=== PATIENT | female | born 1985 | race Hispanic/Latino ===

== ENCOUNTER 2017-11-12 19:29 | Emergency (ER) | payer SELFPAY ==
[~2017-11-12] VITALS: Ht 152.4 cm; Wt 93.0 kg
[2017-11-12 20:17] LABS: URINE BILIRUBIN - DIPSTICK NEGATIVE (NEGATIVE); URINE BLOOD DIPSTICK NEGATIVE (NEGATIVE); URINE COLOR YELLOW; URINE GLUCOSE - DIPSTICK NEGATIVE (NEGATIVE); URINE KETONE NEGATIVE (NEGATIVE); URINE LEUK ESTERASE NEGATIVE (NEGATIVE); URINE NITRITE - DIPSTICK NEGATIVE (Negative); URINE PROTEIN - DIPSTICK NEGATIVE (NEG-TRACE); URINE SPECIFIC GRAVITY >=1.030; URINE UROBILINOGEN - DIPSTICK 0.2 E.U./dL (0.2)
[2017-11-12 20:19] LABS: URINE CLARITY CLEAR
[2017-11-12 20:29] LABS: HEMATOCRIT 38.7 % (37.0-47.0); HEMOGLOBIN 13.3 g/dl (12.0-16.0); IMMATURE GRANULOCYTES 0.5 % (0.0-5.0); MEAN CELL VOLUME 91.5 fL CALC (80.0-100.0); MEAN CORPUSCULAR HGB 31.4 pG CALC (26.0-32.0); MEAN CORPUSCULAR HGB CONC 34.4 g/L CALC (32.0-36.0); NEUT# 5.54 thou/uL (2.00-7.15); RED BLOOD COUNT 4.23 mill/uL (4.20-5.60); RED CELL DISTRI WIDTH 12.5 % (11.5-15.5)
[2017-11-12 20:40] LABS: ALBUMIN 3.9 g/dL (3.2-5.0); ALKALINE PHOSPHATASE 91 u/l (38-126); AMYLASE < 30 u/l (30-110); ANION GAP 12 (6-22 (CALC)); BILIRUBIN, TOTAL 0.2 mg/dL (0.0-1.4); BUN 13 mg/dL (7-17); BUN/CREATININE RATIO 22 (12-20 (CALC)); CARBON DIOXIDE 26 mmol/l (22-30); CHLORIDE 110 mmol/l (95-108); CREATININE 0.6 mg/dL (0.5-1.0); GFR > 60 ML/MIN (>=60 (CALC)); GFR FOR AFR.AMER. > 60 ML/MIN (>=60 (CALC)); LIPASE 125 u/l (23-300); SGOT/AST 18 u/l (14-36); SODIUM 144 mmol/l (137-146); TOTAL PROTEIN 7.2 g/dL (6.3-8.2)
[2017-11-12] MEDS ORDERED: ZOFRAN ODT4 MG PO (21:21)
[2017-11-12 22:01] VITALS: BP 128/72
== END 2017-11-12 21:59 | disposition home or self-care (01) | DRG 866 ==
LOC: ED 19:29
PROVIDERS: Emergency Medicine
DX: B34.9 Viral infection, unspecified (principal)

== ENCOUNTER 2017-12-03 18:40 | Emergency (ER) | payer SELFPAY ==
[~2017-12-03] VITALS: Ht 152.4 cm; Wt 93.0 kg
[~2017-12-03 18:40] MED LIST: ZOFRAN ODT4 MG PO
[2017-12-03 19:14] LABS: URINE BILIRUBIN - DIPSTICK NEGATIVE (NEGATIVE); URINE BLOOD DIPSTICK LARGE (NEGATIVE); URINE CLARITY SL CLOUDY; URINE COLOR YELLOW; URINE GLUCOSE - DIPSTICK NEGATIVE (NEGATIVE); URINE KETONE NEGATIVE (NEGATIVE); URINE LEUK ESTERASE NEGATIVE (NEGATIVE); URINE NITRITE - DIPSTICK NEGATIVE (Negative); URINE PH 6.5 (4.5-8.0); URINE PROTEIN - DIPSTICK NEGATIVE (NEG-TRACE); URINE SPECIFIC GRAVITY 1.025
[2017-12-03 19:20] LABS: URINE BACTERIA FEW hpf; URINE RBC 25-50 RBC/hpf (0-5); URINE SQUAMOUS EPITHELIAL CELL MODERATE EPI/hpf (0-FEW)
[2017-12-03 19:56] VITALS: BP 130/87
== END 2017-12-03 20:04 | disposition home or self-care (01) | DRG 761 ==
LOC: ED 18:40
DX: N92.6 Irregular menstruation, unspecified (principal)

== ENCOUNTER 2018-06-18 16:57 | Emergency (ER) | payer SELFPAY ==
[~2018-06-18] VITALS: Ht 152.4 cm; Wt 90.0 kg
[2018-06-18 17:36] LABS: URINE BILIRUBIN - DIPSTICK NEGATIVE (NEGATIVE); URINE BLOOD DIPSTICK NEGATIVE (NEGATIVE); URINE COLOR YELLOW; URINE GLUCOSE - DIPSTICK NEGATIVE (NEGATIVE); URINE KETONE NEGATIVE (NEGATIVE); URINE LEUK ESTERASE NEGATIVE (NEGATIVE); URINE NITRITE - DIPSTICK NEGATIVE (Negative); URINE PH 6.5 (4.5-8.0); URINE PROTEIN - DIPSTICK NEGATIVE (NEG-TRACE); URINE SPECIFIC GRAVITY 1.025
[2018-06-18 17:48] LABS: HEMATOCRIT 35.8 % (37.0-47.0); HEMOGLOBIN 12.5 g/dl (12.0-16.0); IMMATURE GRANULOCYTES 0.9 % (0.0-5.0); MEAN CELL VOLUME 90.9 fL CALC (80.0-100.0); MEAN CORPUSCULAR HGB 31.7 pG CALC (26.0-32.0); MEAN CORPUSCULAR HGB CONC 34.9 g/L CALC (32.0-36.0); NEUT# 5.83 thou/uL (2.00-7.15); RED BLOOD COUNT 3.94 mill/uL (4.20-5.60); RED CELL DISTRI WIDTH 12.7 % (11.5-15.5)
[2018-06-18 17:53] LABS: ALBUMIN 4.1 g/dL (3.2-5.0); ALKALINE PHOSPHATASE 74 u/l (38-126); ANION GAP 13 (6-22 (CALC)); BUN 10 mg/dL (7-17); BUN/CREATININE RATIO 20 (12-20 (CALC)); CARBON DIOXIDE 23 mmol/l (22-30); CHLORIDE 106 mmol/l (95-108); CREATININE 0.5 mg/dL (0.5-1.0); GFR > 60 ML/MIN (>=60 (CALC)); GFR FOR AFR.AMER. > 60 ML/MIN (>=60 (CALC)); LIPASE 110 u/l (23-300); POTASSIUM 3.6 mmol/l (3.5-5.1); SGOT/AST 19 u/l (14-36); SODIUM 139 mmol/l (137-146)
[2018-06-18 17:55] LABS: BILIRUBIN, TOTAL 0.3 mg/dL (0.0-1.4)
[2018-06-18] MEDS ORDERED: ONDANSETRON4 MG PO (18:40)
[2018-06-18] MEDS ORDERED: AUGMENTIN875TAB PO (18:40)
[2018-06-18] MEDS ORDERED: REGLAN10 MG PO (18:41)
[2018-06-18 18:57] VITALS: BP 127/80
== END 2018-06-18 19:06 | disposition home or self-care (01) | DRG 833 ==
LOC: ED 16:57
PROVIDERS: Family Medicine
DX: O99.619 Diseases of the digestive system complicating pregnancy, unspecified trimester (principal); K80.20 Calculus of gallbladder without cholecystitis without obstruction; O99.519 Diseases of the respiratory system complicating pregnancy, unspecified trimester; J02.0 Streptococcal pharyngitis; Z3A.00 Weeks of gestation of pregnancy not specified

== ENCOUNTER 2020-05-05 13:04 | Emergency (ER) | payer SELFPAY ==
[~2020-05-05] VITALS: Ht 152.4 cm; Wt 90.0 kg
[~2020-05-05 13:04] MED LIST changes: +AUGMENTIN875TAB PO; +ONDANSETRON4 MG PO; +REGLAN10 MG PO
[2020-05-05 14:17] LABS: HEMATOCRIT 37.4 % (37.0-47.0); HEMOGLOBIN 12.8 g/dl (12.0-16.0); IMMATURE GRANULOCYTES 0.7 % (0.0-5.0); MEAN CELL VOLUME 89.3 fL CALC (80.0-100.0); MEAN CORPUSCULAR HGB 30.5 pG CALC (26.0-32.0); MEAN CORPUSCULAR HGB CONC 34.2 g/dL CAL (32.0-36.0); NEUT# 4.42 thou/uL (2.00-7.15); RED BLOOD COUNT 4.19 mill/uL (4.20-5.60); RED CELL DISTRI WIDTH 12.1 % (11.5-15.5)
[2020-05-05 14:28] LABS: ALBUMIN 3.9 g/dL (3.2-5.0); ANION GAP 11 (6-22 (CALC)); BUN 11 mg/dL (7-17); BUN/CREATININE RATIO 17 (12-20 (CALC)); CARBON DIOXIDE 26 mmol/l (22-30); CHLORIDE 106 mmol/l (95-108); CREATININE 0.6 mg/dL (0.5-1.0); GFR > 60 ML/MIN (>=60 (CALC)); GFR FOR AFR.AMER. > 60 ML/MIN (>=60 (CALC)); LIPASE 133 u/l (23-300); POTASSIUM 3.7 mmol/l (3.5-5.1); SGOT/AST 22 u/l (14-36); SODIUM 140 mmol/l (137-146); TOTAL PROTEIN 7.3 g/dL (6.3-8.2)
[2020-05-05 14:29] LABS: ALKALINE PHOSPHATASE 112 u/l (38-126); BILIRUBIN, TOTAL 0.5 mg/dL (0.0-1.4)
[2020-05-05 15:18] LABS: URINE BILIRUBIN - DIPSTICK NEGATIVE (NEGATIVE); URINE BLOOD DIPSTICK SMALL (NEGATIVE); URINE COLOR YELLOW; URINE GLUCOSE - DIPSTICK 100 mg/dL (NEGATIVE); URINE KETONE TRACE mg/dL (NEGATIVE); URINE LEUK ESTERASE NEGATIVE (NEGATIVE); URINE PH 5.5 (4.5-8.0); URINE PROTEIN - DIPSTICK NEGATIVE (NEG-TRACE); URINE SPECIFIC GRAVITY >=1.030; URINE UROBILINOGEN - DIPSTICK 0.2 E.U./dL (0.2)
[2020-05-05 15:24] LABS: URINE NITRITE - DIPSTICK NEGATIVE (Negative)
[2020-05-05 15:28] LABS: URINE EPITHELIAL CELLS FEW EPI/hpf (0-FEW); URINE WBC 0-2 WBC/hpf (0-5)
[2020-05-05 16:20] VITALS: BP 110/65
== END 2020-05-05 16:21 | disposition home or self-care (01) | DRG 641 ==
LOC: ED 13:04
DX: R73.9 Hyperglycemia, unspecified (principal); R42 Dizziness and giddiness; Z20.822 Contact with and (suspected) exposure to COVID-19

== ENCOUNTER 2020-05-24 15:46 | Emergency (ER) | payer SELFPAY ==
[2020-05-24 16:28] LABS: URINE BILIRUBIN - DIPSTICK NEGATIVE (NEGATIVE); URINE BLOOD DIPSTICK NEGATIVE (NEGATIVE); URINE COLOR YELLOW; URINE GLUCOSE - DIPSTICK 250 mg/dL (NEGATIVE); URINE KETONE NEGATIVE (NEGATIVE); URINE LEUK ESTERASE NEGATIVE (NEGATIVE); URINE PH 5.5 (4.5-8.0); URINE PROTEIN - DIPSTICK NEGATIVE (NEG-TRACE); URINE SPECIFIC GRAVITY >=1.030; URINE UROBILINOGEN - DIPSTICK 0.2 E.U./dL (0.2)
[2020-05-24 16:31] LABS: URINE NITRITE - DIPSTICK NEGATIVE (Negative)
[2020-05-24] MEDS ORDERED: METFORMIN500 M2 PO (17:12)
[2020-05-24 17:20] LABS: HEMATOCRIT 39.4 % (37.0-47.0); HEMOGLOBIN 13.5 g/dl (12.0-16.0); IMMATURE GRANULOCYTES 1.1 % (0.0-5.0); MEAN CELL VOLUME 88.9 fL CALC (80.0-100.0); MEAN CORPUSCULAR HGB 30.5 pG CALC (26.0-32.0); MEAN CORPUSCULAR HGB CONC 34.3 g/dL CAL (32.0-36.0); NEUT# 6.1 thou/uL (2.00-7.15); RED BLOOD COUNT 4.43 mill/uL (4.20-5.60); RED CELL DISTRI WIDTH 12.6 % (11.5-15.5)
[2020-05-24 17:39] LABS: ALBUMIN 4.3 g/dL (3.2-5.0); ALKALINE PHOSPHATASE 105 u/l (38-126); ANION GAP 11 (6-22 (CALC)); BILIRUBIN, TOTAL 0.5 mg/dL (0.0-1.4); BUN 11 mg/dL (7-17); BUN/CREATININE RATIO 20 (12-20 (CALC)); CARBON DIOXIDE 26 mmol/l (22-30); CHLORIDE 103 mmol/l (95-108); CREATININE 0.6 mg/dL (0.5-1.0); GFR > 60 ML/MIN (>=60 (CALC)); GFR FOR AFR.AMER. > 60 ML/MIN (>=60 (CALC)); POTASSIUM 4.3 mmol/l (3.5-5.1); SGOT/AST 23 u/l (14-36); SODIUM 136 mmol/l (137-146); TOTAL PROTEIN 7.8 g/dL (6.3-8.2)
[2020-05-24] MEDS ORDERED: [UNRECOGNIZED DRUG - OTHER] VA (18:13)
[2020-05-24 18:33] VITALS: BP 130/78
== END 2020-05-24 18:33 | disposition home or self-care (01) | DRG 641 ==
LOC: ED 15:46
PROVIDERS: Emergency Medicine
DX: R73.9 Hyperglycemia, unspecified (principal); B37.3 Candidiasis of vulva and vagina

== ENCOUNTER 2021-02-02 15:56 | Emergency (ER) | payer SELFPAY ==
[~2021-02-02] VITALS: Ht 152.4 cm; Wt 72.0 kg
[~2021-02-02 15:56] MED LIST changes: +METFORMIN500 M2 PO; +[UNRECOGNIZED DRUG - OTHER] VA
[2021-02-02 17:28] LABS: HEMATOCRIT 38.2 % (37.0-47.0); HEMOGLOBIN 13.2 g/dl (12.0-16.0); IMMATURE GRANULOCYTES 0.4 % (0.0-5.0); MEAN CELL VOLUME 89.3 fL CALC (80.0-100.0); MEAN CORPUSCULAR HGB 30.8 pG CALC (26.0-32.0); MEAN CORPUSCULAR HGB CONC 34.6 g/dL CAL (32.0-36.0); NEUT# 4.71 thou/uL (2.00-7.15); RED BLOOD COUNT 4.28 mill/uL (4.20-5.60)
[2021-02-02 17:38] LABS: ALBUMIN 4.3 g/dL (3.2-5.0); ALKALINE PHOSPHATASE 135 u/l (38-126); ANION GAP 11 (6-22 (CALC)); BUN 10 mg/dL (7-17); BUN/CREATININE RATIO 14 (12-20 (CALC)); CARBON DIOXIDE 27 mmol/l (22-30); CHLORIDE 104 mmol/l (95-108); CREATININE 0.7 mg/dL (0.5-1.0); GFR > 60 ML/MIN (>=60 (CALC)); GFR FOR AFR.AMER. > 60 ML/MIN (>=60 (CALC)); POTASSIUM 4.8 mmol/l (3.5-5.1); SODIUM 137 mmol/l (137-146); TOTAL PROTEIN 8.4 g/dL (6.3-8.2)
[2021-02-02 17:39] LABS: BILIRUBIN, TOTAL 1.3 mg/dL (0.0-1.4); SGOT/AST 50 u/l (14-36)
[2021-02-02 17:49] LABS: MYOGLOBIN 14 ng/mL (0 - 62)
[2021-02-02 19:36] LABS: URINE BILIRUBIN - DIPSTICK NEGATIVE (NEGATIVE); URINE BLOOD DIPSTICK NEGATIVE (NEGATIVE); URINE COLOR YELLOW; URINE GLUCOSE - DIPSTICK >=1000 mg/dL (NEGATIVE); URINE KETONE NEGATIVE (NEGATIVE); URINE LEUK ESTERASE NEGATIVE (NEGATIVE); URINE PROTEIN - DIPSTICK NEGATIVE (NEG-TRACE); URINE SPECIFIC GRAVITY >=1.030; URINE UROBILINOGEN - DIPSTICK 0.2 E.U./dL (0.2)
[2021-02-02 19:41] LABS: URINE NITRITE - DIPSTICK NEGATIVE (Negative)
[2021-02-02 20:07] VITALS: BP 128/75
== END 2021-02-02 20:07 | disposition home or self-care (01) | DRG 639 ==
LOC: ED 15:56
PROVIDERS: Emergency Medicine
DX: E11.65 Type 2 diabetes mellitus with hyperglycemia (principal); T38.3X6A Underdosing of insulin and oral hypoglycemic [antidiabetic] drugs, initial encounter; Z91.128 Patient's intentional underdosing of medication regimen for other reason

== ENCOUNTER 2021-05-23 09:31 | Emergency (ER) | payer SELFPAY ==
[~2021-05-23] VITALS: Ht 152.4 cm; Wt 100.0 kg
[2021-05-23 09:43] VITALS: BP 134/79
[2021-05-23 10:03] LABS: URINE BILIRUBIN - DIPSTICK NEGATIVE (NEGATIVE); URINE BLOOD DIPSTICK MODERATE (NEGATIVE); URINE COLOR YELLOW; URINE GLUCOSE - DIPSTICK >=1000 mg/dL (NEGATIVE); URINE KETONE NEGATIVE (NEGATIVE); URINE LEUK ESTERASE NEGATIVE (NEGATIVE); URINE PROTEIN - DIPSTICK NEGATIVE (NEG-TRACE); URINE UROBILINOGEN - DIPSTICK 0.2 E.U./dL (0.2)
[2021-05-23 10:19] LABS: URINE NITRITE - DIPSTICK NEGATIVE (Negative)
[2021-05-23 10:21] LABS: URINE EPITHELIAL CELLS FEW EPI/hpf (0-FEW)
[2021-05-23 10:32] VITALS: BP 121/76
[2021-05-23] MEDS ORDERED: DOXY-CAPS100 MG PO (10:59)
[2021-05-23 11:00] VITALS: BP 120/71
[2021-05-23] MEDS ORDERED: DIFLUCAN150 MG PO (11:00)
[2021-05-23 11:30] VITALS: BP 121/71
[2021-05-23 11:38] VITALS: BP 121/71
== END 2021-05-23 11:38 | disposition home or self-care (01) | DRG 759 ==
LOC: ED 09:31
PROVIDERS: Family Medicine
DX: A64 Unspecified sexually transmitted disease (principal); E11.65 Type 2 diabetes mellitus with hyperglycemia; B37.3 Candidiasis of vulva and vagina

== ENCOUNTER 2021-11-17 09:16 | Emergency (ER) | payer SELFPAY ==
[~2021-11-17] VITALS: Ht 152.4 cm; Wt 59.0 kg
[~2021-11-17 09:16] MED LIST changes: +DIFLUCAN150 MG PO; +DOXY-CAPS100 MG PO
[2021-11-17 09:26] VITALS: BP 114/63
[2021-11-17] MEDS ORDERED: MUPIROCIN21 TOP (09:43)
[2021-11-17] MEDS ORDERED: CEPHALEXIN500 M1 PO (09:43)
[2021-11-17 10:16] VITALS: BP 114/63
== END 2021-11-17 10:17 | disposition home or self-care (01) | DRG 605 ==
LOC: ED 09:16
DX: S90.812A Abrasion, left foot, initial encounter (principal); L03.116 Cellulitis of left lower limb; E11.9 Type 2 diabetes mellitus without complications; X58.XXXA Exposure to other specified factors, initial encounter; Y92.007 Garden or yard of unspecified non-institutional (private) residence as the place of occurrence of the external cause

== ENCOUNTER 2021-12-30 13:27 | Emergency (ER) | payer SELFPAY ==
[~2021-12-30] VITALS: Ht 152.4 cm; Wt 85.0 kg
[~2021-12-30 13:27] MED LIST changes: +CEPHALEXIN500 M1 PO; +MUPIROCIN21 TOP
[2021-12-30 14:12] VITALS: BP 106/65
[2021-12-30 14:15] LABS: HEMATOCRIT 33.3 % (37.0-47.0); HEMOGLOBIN 11.6 g/dl (12.0-16.0); IMMATURE GRANULOCYTES 0.5 % (0.0-5.0); MEAN CELL VOLUME 90.7 fL CALC (80.0-100.0); MEAN CORPUSCULAR HGB 31.6 pG CALC (26.0-32.0); MEAN CORPUSCULAR HGB CONC 34.8 g/dL CAL (32.0-36.0); NEUT# 4.87 thou/uL (2.00-7.15); RED BLOOD COUNT 3.67 mill/uL (4.20-5.60); RED CELL DISTRI WIDTH 12.2 % (11.5-15.5)
[2021-12-30 14:20] LABS: URINE BILIRUBIN - DIPSTICK NEGATIVE (NEGATIVE); URINE BLOOD DIPSTICK MODERATE (NEGATIVE); URINE COLOR YELLOW; URINE GLUCOSE - DIPSTICK >=1000 mg/dL (NEGATIVE); URINE KETONE TRACE mg/dL (NEGATIVE); URINE LEUK ESTERASE NEGATIVE (NEGATIVE); URINE PROTEIN - DIPSTICK NEGATIVE (NEG-TRACE); URINE SPECIFIC GRAVITY >=1.030; URINE UROBILINOGEN - DIPSTICK 0.2 E.U./dL (0.2)
[2021-12-30 14:33] LABS: URINE NITRITE - DIPSTICK NEGATIVE (Negative)
[2021-12-30 14:34] LABS: ALBUMIN 3.6 g/dL (3.2-5.0); ALKALINE PHOSPHATASE 98 u/l (38-126); BUN 9 mg/dL (7-17); BUN/CREATININE RATIO 14 (12-20 (CALC)); CARBON DIOXIDE 26 mmol/l (22-30); CHLORIDE 105 mmol/l (95-108); CREATININE 0.6 mg/dL (0.5-1.0); GFR FOR AFR.AMER. > 60 ML/MIN (>=60 (CALC)); GFR OTHER RACES > 60 ML/MIN (>=60 (CALC)); SGOT/AST 30 u/l (14-36); SODIUM 139 mmol/l (137-146)
[2021-12-30 14:40] LABS: URINE WBC 0-2 WBC/hpf (0-5)
[2021-12-30 14:51] LABS: ANION GAP 12 (6-22 (CALC)); BILIRUBIN, TOTAL 0.2 mg/dL (0.0-1.4); POTASSIUM 3.5 mmol/l (3.5-5.1); TOTAL PROTEIN 6.7 g/dL (6.3-8.2)
[2021-12-30 18:37] VITALS: BP 106/65
== END 2021-12-30 18:42 | disposition home or self-care (01) | DRG 779 ==
LOC: ED 13:27
PROVIDERS: Family Medicine
DX: O03.4 Incomplete spontaneous abortion without complication (principal)

== ENCOUNTER 2021-12-31 11:25 | Emergency (ER) | payer SELFPAY ==
[~2021-12-31] VITALS: Ht 152.4 cm; Wt 70.0 kg
[2021-12-31 11:31] VITALS: BP 128/64
[2021-12-31 12:16] VITALS: BP 128/64
== END 2021-12-31 12:39 | disposition home or self-care (01) | DRG 779 ==
LOC: ED 11:25
DX: O03.4 Incomplete spontaneous abortion without complication (principal)

== ENCOUNTER 2022-01-01 07:49 | Emergency (ER) | payer SELFPAY ==
[~2022-01-01] VITALS: Ht 152.4 cm; Wt 81.8 kg
[2022-01-01 07:57] VITALS: BP 135/95
[2022-01-01 08:02] VITALS: BP 135/89
[2022-01-01 08:16] LABS: HEMATOCRIT 34.2 % (37.0-47.0); HEMOGLOBIN 12.1 g/dl (12.0-16.0); IMMATURE GRANULOCYTES 0.8 % (0.0-5.0); MEAN CORPUSCULAR HGB 31.8 pG CALC (26.0-32.0); MEAN CORPUSCULAR HGB CONC 35.4 g/dL CAL (32.0-36.0); NEUT# 4.46 thou/uL (2.00-7.15); RED BLOOD COUNT 3.8 mill/uL (4.20-5.60); RED CELL DISTRI WIDTH 12.1 % (11.5-15.5)
[2022-01-01 08:45] LABS: ALBUMIN 3.9 g/dL (3.2-5.0); ALKALINE PHOSPHATASE 99 u/l (38-126); ANION GAP 10 (6-22 (CALC)); BILIRUBIN, TOTAL 0.2 mg/dL (0.0-1.4); BUN 8 mg/dL (7-17); BUN/CREATININE RATIO 17 (12-20 (CALC)); CARBON DIOXIDE 27 mmol/l (22-30); CHLORIDE 106 mmol/l (95-108); CREATININE 0.5 mg/dL (0.5-1.0); GFR FOR AFR.AMER. > 60 ML/MIN (>=60 (CALC)); GFR OTHER RACES > 60 ML/MIN (>=60 (CALC)); POTASSIUM 3.8 mmol/l (3.5-5.1); SGOT/AST 29 u/l (14-36); SODIUM 140 mmol/l (137-146); TOTAL PROTEIN 6.8 g/dL (6.3-8.2)
[2022-01-01 09:26] VITALS: BP 135/89
== END 2022-01-01 09:27 | disposition home or self-care (01) | DRG 779 ==
LOC: ED 07:49
PROVIDERS: Family Medicine
DX: O03.9 Complete or unspecified spontaneous abortion without complication (principal)

== ENCOUNTER 2022-04-14 07:24 | Emergency (ER) | payer SELFPAY ==
[~2022-04-14] VITALS: Ht 152.4 cm; Wt 56.8 kg
[2022-04-14] VITALS (8 sets, daily range): BP systolic 101–129; BP diastolic 60–83
[2022-04-14 09:54] LABS: URINE BILIRUBIN - DIPSTICK NEGATIVE (NEGATIVE); URINE BLOOD DIPSTICK NEGATIVE (NEGATIVE); URINE COLOR YELLOW; URINE GLUCOSE - DIPSTICK >=1000 mg/dL (NEGATIVE); URINE KETONE NEGATIVE (NEGATIVE); URINE LEUK ESTERASE NEGATIVE (NEGATIVE); URINE PROTEIN - DIPSTICK NEGATIVE (NEG-TRACE); URINE SPECIFIC GRAVITY 1.015; URINE UROBILINOGEN - DIPSTICK 0.2 E.U./dL (0.2)
[2022-04-14 10:00] LABS: URINE NITRITE - DIPSTICK NEGATIVE (Negative)
[2022-04-14] MEDS ORDERED: ACYCLOVIR400 MG PO (12:00)
== END 2022-04-14 12:48 | disposition home or self-care (01) | DRG 759 ==
LOC: ED 07:24
PROVIDERS: Emergency Medicine
DX: A60.04 Herpesviral vulvovaginitis (principal); E11.9 Type 2 diabetes mellitus without complications

== ENCOUNTER 2022-09-07 18:16 | Emergency (ER) | payer SELFPAY ==
[2022-09-07] VITALS (8 sets, daily range): BP systolic 119–147; BP diastolic 80–92
[~2022-09-07] VITALS: Ht 152.4 cm; Wt 81.6 kg
[~2022-09-07 18:16] MED LIST changes: +ACYCLOVIR400 MG PO
[2022-09-07 19:12] LABS: BASO% 0.6 % (0-3); EOS% 4.3 % (0-8); HEMATOCRIT 37.2 % (37.0-47.0); HEMOGLOBIN 12.3 g/dl (12.0-16.0); IMMATURE GRANULOCYTES 0.8 % (0.0-5.0); LYMPH% 20.8 % (15-41); MEAN CELL VOLUME 87.3 fL CALC (80.0-100.0); MEAN CORPUSCULAR HGB 28.9 pG CALC (26.0-32.0); MEAN CORPUSCULAR HGB CONC 33.1 g/dL CAL (32.0-36.0); MONO% 11.2 % (2-13); NEUT# 4.04 thou/uL (2.00-7.15); NEUT% 62.3 % (42-76); RED BLOOD COUNT 4.26 mill/uL (4.20-5.60); RED CELL DISTRI WIDTH 12.5 % (11.5-15.5)
[2022-09-07 19:24] LABS: ALBUMIN 3.6 g/dL (3.2-5.0); ANION GAP 13 (6-22 (CALC)); BUN 6 mg/dL (7-17); BUN/CREATININE RATIO 11 (12-20 (CALC)); CARBON DIOXIDE 23 mmol/l (22-30); CHLORIDE 102 mmol/l (95-108); CREATININE 0.5 mg/dL (0.5-1.0); GFR FOR AFR.AMER. > 60 ML/MIN (>=60 (CALC)); GFR OTHER RACES > 60 ML/MIN (>=60 (CALC)); LIPASE 217 u/l (23-300); POTASSIUM 3.8 mmol/l (3.5-5.1); SGOT/AST 36 u/l (14-36); SODIUM 134 mmol/l (137-146); TOTAL PROTEIN 7.1 g/dL (6.3-8.2)
[2022-09-07 19:27] LABS: BILIRUBIN, TOTAL 0.3 mg/dL (0.02-1.3)
[2022-09-07 19:28] LABS: ALKALINE PHOSPHATASE 165 u/l (38-126)
[2022-09-07 19:32] LABS: URINE BILIRUBIN - DIPSTICK NEGATIVE (NEGATIVE); URINE COLOR YELLOW; URINE GLUCOSE - DIPSTICK >=1000 mg/dL (NEGATIVE); URINE KETONE Negative (NEGATIVE); URINE PH 5.5 (4.5-8.0); URINE PROTEIN - DIPSTICK NEGATIVE (NEG-TRACE); URINE UROBILINOGEN - DIPSTICK 0.2 E.U./dL (0.2)
[2022-09-07 19:33] LABS: URINE BLOOD DIPSTICK NEGATIVE (NEGATIVE); URINE LEUK ESTERASE SMALL (NEGATIVE); URINE NITRITE - DIPSTICK NEGATIVE (Negative)
[2022-09-07 19:36] LABS: URINE BACTERIA MODERATE hpf; URINE RBC 0-2 RBC/hpf (0-5); URINE SQUAMOUS EPITHELIAL CELL FEW EPI/hpf (0-FEW)
[2022-09-07] MEDS ORDERED: METHOCARBAMOL500 MG PO (20:08)
[2022-09-07] MEDS ORDERED: KEFLEX500 MG PO (20:08)
[2022-09-07] MEDS ORDERED: METFORMIN HCL500 M1 PO (20:08)
== END 2022-09-07 20:19 | disposition home or self-care (01) | DRG 313 ==
LOC: ED 18:16
PROVIDERS: Nurse Practitioner
DX: R07.89 Other chest pain (principal); N39.0 Urinary tract infection, site not specified; E11.65 Type 2 diabetes mellitus with hyperglycemia; Z79.84 Long term (current) use of oral hypoglycemic drugs

== ENCOUNTER 2023-03-07 20:57 | Emergency (ER) | payer SELFPAY ==
[2023-03-07] VITALS (11 sets, daily range): BP systolic 124–137; BP diastolic 76–98
[~2023-03-07] VITALS: Ht 152.4 cm; Wt 80.7 kg
[~2023-03-07 20:57] MED LIST changes: +KEFLEX500 MG PO; +METFORMIN HCL1000 MG PO; +METFORMIN HCL500 M1 PO; +METHOCARBAMOL500 MG PO; +METRONIDAZOLE500 MG PO
[2023-03-07 21:49] LABS: URINE BILIRUBIN - DIPSTICK Negative (NEGATIVE); URINE BLOOD DIPSTICK Negative (NEGATIVE); URINE CLARITY Clear; URINE GLUCOSE - DIPSTICK >=1000 mg/dL (NEGATIVE); URINE KETONE Negative (NEGATIVE); URINE LEUK ESTERASE Negative (Negative); URINE NITRITE - DIPSTICK Negative (Negative); URINE PH 6.5 (4.5-8.0); URINE PROTEIN - DIPSTICK Negative (NEG-TRACE); URINE SPECIFIC GRAVITY 1.015; URINE UROBILINOGEN - DIPSTICK 0.2 E.U./dL (0.2)
[2023-03-07 21:55] LABS: BASO% 0.4 % (0-3); HEMATOCRIT 37.6 % (37.0-47.0); HEMOGLOBIN 12.7 g/dl (12.0-16.0); IMMATURE GRANULOCYTES 0.2 % (0.0-5.0); LYMPH% 28.7 % (15-41); MEAN CELL VOLUME 85.8 fL CALC (80.0-100.0); MEAN CORPUSCULAR HGB CONC 33.8 g/dL CAL (32.0-36.0); MONO% 6.6 % (2-13); NEUT# 6.14 thou/uL (2.00-7.15); NEUT% 63.1 % (42-76); RED BLOOD COUNT 4.38 mill/uL (4.20-5.60); RED CELL DISTRI WIDTH 11.9 % (11.5-15.5)
[2023-03-07 22:14] LABS: ALBUMIN 3.8 g/dL (3.2-5.0); ALKALINE PHOSPHATASE 167 u/l (38-126); ANION GAP 11 (6-22 (CALC)); BILIRUBIN, TOTAL 0.3 mg/dL (0.02-1.3); BUN 12 mg/dL (7-17); BUN/CREATININE RATIO 27 (12-20 (CALC)); CARBON DIOXIDE 25 mmol/l (22-30); CHLORIDE 103 mmol/l (95-108); CREATININE 0.4 mg/dL (0.5-1.0); GFR FOR AFR.AMER. > 60 ML/MIN (>=60 (CALC)); GFR OTHER RACES > 60 ML/MIN (>=60 (CALC)); POTASSIUM 3.8 mmol/l (3.5-5.1); SGOT/AST 23 u/l (14-36); SODIUM 136 mmol/l (137-146)
[2023-03-07 22:20] LABS: URINE COLOR Yellow
[2023-03-08] VITALS (15 sets, daily range): BP systolic 117–153; BP diastolic 68–110
== END 2023-03-08 05:12 | disposition home or self-care (01) | DRG 639 ==
LOC: ED 20:57
PROVIDERS: Family Medicine
DX: E11.65 Type 2 diabetes mellitus with hyperglycemia (principal); Z79.84 Long term (current) use of oral hypoglycemic drugs

== ENCOUNTER 2023-04-03 15:31 | Emergency (ER) | payer SELFPAY ==
[~2023-04-03] VITALS: Ht 152.4 cm; Wt 77.0 kg
[2023-04-03 17:06] LABS: URINE BILIRUBIN - DIPSTICK Negative (NEGATIVE); URINE BLOOD DIPSTICK Negative (NEGATIVE); URINE COLOR Yellow; URINE GLUCOSE - DIPSTICK >=1000 mg/dL (NEGATIVE); URINE KETONE Negative (NEGATIVE); URINE LEUK ESTERASE Small (NEGATIVE); URINE NITRITE - DIPSTICK Negative (Negative); URINE PROTEIN - DIPSTICK Negative (NEG-TRACE); URINE UROBILINOGEN - DIPSTICK 0.2 E.U./dL (0.2)
[2023-04-03 17:12] LABS: URINE BACTERIA RARE hpf; URINE RBC 0-2 RBC/hpf (0-5); URINE SQUAMOUS EPITHELIAL CELL MODERATE EPI/hpf (0-FEW); URINE WBC 0-2 WBC/hpf (0-5)
[2023-04-03] MEDS ORDERED: KETOCONAZOLE2 % EX (17:13)
[2023-04-03] MEDS ORDERED: KETOCONAZOLE200 MG PO (17:13)
[2023-04-03 18:51] VITALS: BP 125/69
== END 2023-04-03 18:57 | disposition home or self-care (01) | DRG 759 ==
LOC: ED 15:31
PROVIDERS: Family Medicine
DX: N76.0 Acute vaginitis (principal); E11.65 Type 2 diabetes mellitus with hyperglycemia

== ENCOUNTER 2023-11-01 13:15 | Emergency (ER) | payer SELFPAY ==
[~2023-11-01] VITALS: Ht 152.4 cm; Wt 81.8 kg
[2023-11-01] VITALS (9 sets, daily range): BP systolic 103–123; BP diastolic 66–80
[~2023-11-01 13:15] MED LIST changes: +KETOCONAZOLE2 % EX; +KETOCONAZOLE200 MG PO
[2023-11-01 13:57] LABS: BASO% 0.4 % (0-3); EOS% 0.5 % (0-8); HEMATOCRIT 33.4 % (37.0-47.0); IMMATURE GRANULOCYTES 0.4 % (0.0-5.0); LYMPH% 23.2 % (15-41); MEAN CELL VOLUME 85.4 fL CALC (80.0-100.0); MEAN CORPUSCULAR HGB 28.1 pG CALC (26.0-32.0); MEAN CORPUSCULAR HGB CONC 32.9 g/dL CAL (32.0-36.0); MONO% 6.1 % (2-13); NEUT# 5.12 thou/uL (2.00-7.15); NEUT% 69.4 % (42-76); RED BLOOD COUNT 3.91 mill/uL (4.20-5.60); RED CELL DISTRI WIDTH 13.2 % (11.5-15.5)
[2023-11-01 14:14] LABS: ALBUMIN 3.7 g/dL (3.2-5.0); ANION GAP 7 (6-22 (CALC)); BILIRUBIN, TOTAL 0.2 mg/dL (0.02-1.3); BUN 7 mg/dL (7-17); BUN/CREATININE RATIO 13 (12-20 (CALC)); CARBON DIOXIDE 22 mmol/l (22-30); CHLORIDE 109 mmol/l (95-108); CREATININE 0.5 mg/dL (0.5-1.0); ESTIMATED GFR 123 ML/MIN (>=90 (CALC)); POTASSIUM 3.6 mmol/l (3.5-5.1); SGOT/AST 18 u/l (14-36); SODIUM 136 mmol/l (137-146); TOTAL PROTEIN 7.1 g/dL (6.3-8.2)
[2023-11-01 14:15] LABS: ALKALINE PHOSPHATASE 72 u/l (38-126)
== END 2023-11-01 17:37 | disposition home or self-care (01) | DRG 833 ==
LOC: ED 13:15
PROVIDERS: Family Medicine
DX: O26.891 Other specified pregnancy related conditions, first trimester (principal); R07.9 Chest pain, unspecified; O24.311 Unspecified pre-existing diabetes mellitus in pregnancy, first trimester; E11.9 Type 2 diabetes mellitus without complications; O99.211 Obesity complicating pregnancy, first trimester; E66.9 Obesity, unspecified; Z3A.11 11 weeks gestation of pregnancy

== ENCOUNTER 2024-01-19 09:42 | Emergency (ER) | payer SELFPAY ==
[~2024-01-19] VITALS: Ht 152.4 cm; Wt 68.0 kg
[2024-01-19 09:54] VITALS: BP 170/96
[2024-01-19 10:00] VITALS: BP 153/88
[2024-01-19 10:15] VITALS: BP 165/96
[2024-01-19 10:25] LABS: URINE BILIRUBIN - DIPSTICK Negative (NEGATIVE); URINE BLOOD DIPSTICK Negative (NEGATIVE); URINE GLUCOSE - DIPSTICK >=1000 mg/dL (NEGATIVE); URINE KETONE Negative (NEGATIVE); URINE NITRITE - DIPSTICK Negative (Negative); URINE PH 6.5 (4.5-8.0); URINE PROTEIN - DIPSTICK Negative (NEG-TRACE); URINE SPECIFIC GRAVITY 1.015; URINE UROBILINOGEN - DIPSTICK 0.2 E.U./dL (0.2)
[2024-01-19 10:26] LABS: BASO% 0.4 % (0-3); EOS% 0.4 % (0-8); HEMATOCRIT 36.2 % (37.0-47.0); HEMOGLOBIN 12.3 g/dl (12.0-16.0); MEAN CORPUSCULAR HGB 28.2 pG CALC (26.0-32.0); NEUT# 5.63 thou/uL (2.00-7.15); NEUT% 70.2 % (42-76); RED BLOOD COUNT 4.36 mill/uL (4.20-5.60); RED CELL DISTRI WIDTH 12.7 % (11.5-15.5)
[2024-01-19 10:30] VITALS: BP 149/94
[2024-01-19 10:30] LABS: URINE COLOR Yellow; URINE LEUK ESTERASE Small (NEGATIVE)
[2024-01-19 10:31] LABS: URINE BACTERIA MODERATE hpf; URINE EPITHELIAL CELLS MANY EPI/hpf (0-FEW)
[2024-01-19 10:36] LABS: ALBUMIN 3.4 g/dL (3.2-5.0); BILIRUBIN, TOTAL 0.3 mg/dL (0.02-1.3); CREATININE 0.5 mg/dL (0.5-1.0); POTASSIUM 4.4 mmol/l (3.5-5.1); TOTAL PROTEIN 7.1 g/dL (6.3-8.2)
[2024-01-19 10:45] VITALS: BP 156/94
[2024-01-19] MEDS ORDERED: METRONIDAZOLE500 MG PO (10:50)
[2024-01-19 11:00] VITALS: BP 148/88
[2024-01-22] MEDS ORDERED: AMOX/K CLAV875 M1 PO (11:05)
== END 2024-01-19 11:01 | disposition home or self-care (01) | DRG 832 ==
LOC: ED 09:42
PROVIDERS: Family Medicine
DX: O23.599 Infection of other part of genital tract in pregnancy, unspecified trimester (principal); O23.40 Unspecified infection of urinary tract in pregnancy, unspecified trimester; N39.0 Urinary tract infection, site not specified; B96.4 Proteus (mirabilis) (morganii) as the cause of diseases classified elsewhere; O24.119 Pre-existing type 2 diabetes mellitus, in pregnancy, unspecified trimester; Z3A.00 Weeks of gestation of pregnancy not specified

== ENCOUNTER 2024-01-25 23:37 | Observation (INO) | payer SELFPAY ==
[~2024-01-25] VITALS: Ht 152.4 cm; Wt 81.0 kg
[~2024-01-25 23:37] MED LIST changes: +AMOX/K CLAV875 M1 PO
--- NOTE | 2024-01-25 23:45 | NUR ---
PT TO RM #4 WITH STEADY GAIT, CHANGED TO GOWN, PT AMB TO BR FOR URINE SPECIMEN AT THIS TIME, NOTIFIED.
[2024-01-25] MEDS ORDERED: Pantoprazole Sodium 40 MG VIAL (Protonix) IV ONE (23:55)
[2024-01-26 00:15] LABS: URINE BILIRUBIN - DIPSTICK Negative (NEGATIVE); URINE BLOOD DIPSTICK Trace-intact (NEGATIVE); URINE GLUCOSE - DIPSTICK 500 mg/dL (NEGATIVE); URINE KETONE Negative (NEGATIVE); URINE NITRITE - DIPSTICK Negative (Negative); URINE PROTEIN - DIPSTICK 100 mg/dL (NEG-TRACE); URINE UROBILINOGEN - DIPSTICK 0.2 E.U./dL (0.2)
[2024-01-26 00:16] LABS: BASO% 0.4 % (0-3); EOS% 0.2 % (0-8); HEMATOCRIT 34.2 % (37.0-47.0); HEMOGLOBIN 11.5 g/dl (12.0-16.0); IMMATURE GRANULOCYTES 2.1 % (0.0-5.0); LYMPH% 16.1 % (15-41); MEAN CORPUSCULAR HGB 27.9 pG CALC (26.0-32.0); MEAN CORPUSCULAR HGB CONC 33.6 g/dL CAL (32.0-36.0); MONO% 6.6 % (2-13); NEUT# 8.21 thou/uL (2.00-7.15); NEUT% 74.6 % (42-76); RED BLOOD COUNT 4.12 mill/uL (4.20-5.60); RED CELL DISTRI WIDTH 12.9 % (11.5-15.5)
[2024-01-26 00:17] LABS: URINE COLOR Yellow; URINE LEUK ESTERASE Small (NEGATIVE)
[2024-01-26 00:21] LABS: URINE BACTERIA FEW hpf; URINE SQUAMOUS EPITHELIAL CELL FEW EPI/hpf (0-FEW)
[2024-01-26 00:31] LABS: ALBUMIN 2.9 g/dL (3.2-5.0); CREATININE 0.5 mg/dL (0.5-1.0); POTASSIUM 4.1 mmol/l (3.5-5.1); TOTAL PROTEIN 6.2 g/dL (6.3-8.2)
[2024-01-26 00:32] LABS: BILIRUBIN, TOTAL 0.6 mg/dL (0.02-1.3)
[2024-01-26] MEDS ORDERED: INSULIN REGULAR (HUMAN) 100 UNIT/ML INJ IV ONE (01:25)
[2024-01-26] MEDS ORDERED: PIPERACILLIN Sodium-Tazobactam 3.375 GM in SODIUM CHLORIDE 0.9% 100 ML IV ONE (01:30)
[2024-01-26] MEDS ORDERED: SODIUM CHLORIDE 0.9% 1,000 ML IV PRN ×2 (01:30→11:00)
--- NOTE | 2024-01-26 02:11 | NUR ---
PT RESTING, NO NEEDS AT THIS TIME.
[2024-01-26] MEDS ORDERED: ONDANSETRON HCl 4 MG/2 ML SDV IV ONE (02:50)
[2024-01-26] MEDS ORDERED: ACETAMINOPHEN 325 MG/TAB PO ONE (02:55)
[2024-01-26 03:04] VITALS: BP 182/104
[2024-01-26 03:16] VITALS: BP 174/94
[2024-01-26 03:31] VITALS: BP 146/78
[2024-01-26 03:45] VITALS: BP 167/87
--- NOTE | 2024-01-26 03:52 | NUR ---
PT SLEEPING WITH FAMILY AT BEDSIDE.
[2024-01-26 04:00] VITALS: BP 133/71
--- NOTE | 2024-01-26 06:13 | NUR ---
PT SLEEPING, NO NEEDS AT THIS TIME.
--- NOTE | 2024-01-26 06:56 | NUR ---
PT REPORT TO KARRI AMAYA. TRANSFERRED CARE OF PT.
[2024-01-26] MEDS ORDERED: INSULIN LISPRO 100 UNITS/ML ML SC SCH ×2 (08:00→17:00)
--- NOTE | 2024-01-26 08:02 | NUR ---
PT IS IN ICU BED 5. ORIENTED TO THE ROOM AND CALL LIGHT. BROUGHT UP VIA WHEEL CHAIR BY MYSELF, NATALIA ZENG. CALL LIGHT IN REACH. PT IN STABLE CONDITION.
--- NOTE | 2024-01-26 08:40 | NUR ---
PT LEFT ROOM, BROUGHT DOWN BY OR STAFF.
[2024-01-26] MEDS ORDERED: SODIUM CHLORIDE 0.9% 1,000 ML IV ONE ×3 (09:08→11:33)
[2024-01-26] MEDS ORDERED: FAMOTIDINE 10MG/ML 2ML SDV IV ONE (09:08)
[2024-01-26] MEDS ORDERED: SODIUM CHLORIDE 1,000 ML BTL IR ONE (09:13)
[2024-01-26] MEDS ORDERED: LIDOcaine HCl 1% (Local Anesth.) 20 ML VIAL ONE (09:13)
--- NOTE | 2024-01-26 10:00 | NUR ---
PT OFF UNIT
[2024-01-26] MEDS ORDERED: SUCCINYLCHOLINE CHLORIDE 20 MG/ML 10ML VIAL IV ONE (10:07)
[2024-01-26] MEDS ORDERED: LACTATED RINGER'S 1,000 ML BAG IV ONE (10:07)
[2024-01-26] MEDS ORDERED: NEOSTIGMINE METHYLSULFATE IV ONE (10:07)
[2024-01-26] MEDS ORDERED: GLYCOPYRROLATE 0.2 MG/ML IV ONE (10:07)
[2024-01-26] MEDS ORDERED: ROCURONIUM BROMIDE 10 MG/ML 5ML VIAL IV ONE (10:07)
[2024-01-26] MEDS ORDERED: PROPOFOL 200 MG/20 ML VIAL IV ONE (10:07)
[2024-01-26] MEDS ORDERED: SIMETHICONE 20 MG/0.3 ML PO PRN (11:00)
[2024-01-26] MEDS ORDERED: oxyCODONE 5MG/ ACETAMINOPHEN 325MG TAB PO PRN (11:00)
[2024-01-26] MEDS ORDERED: HYDROmorphone HCL 2 MG/AMP IV PRN (11:00)
[2024-01-26] MEDS ORDERED: ONDANSETRON HCl 4 MG/2 ML SDV IV PRN (11:00)
[2024-01-26] MEDS ORDERED: DEXTROSE 250 ML IV PRN (11:00)
[2024-01-26] MEDS ORDERED: ACETAMINOPHEN 100 ML IV ONE (11:13)
--- NOTE | 2024-01-26 12:17 | NUR ---
PT BACK IN ROOM. BROUGHT BY TOOL FILER HANDKARRI RHODES VIA PT BED. PT IS AWAKE AND IN STABLE CONDITION.
[2024-01-26] MEDS ORDERED: hydrALAZINE HCL 20 MG/ML VIAL(1 ML) IV PRN (14:05)
--- NOTE | 2024-01-26 14:06 | NUR ---
PT IS SLEEPING IN BED. EVEN AND UNLABORED BREATHING. CALL LIGHT IN REACH.
--- NOTE | 2024-01-26 16:00 | NUR ---
PT IS SITTING IN BED. FAMILY AT THE BEDSIDE. CALL LIGHT IN HAND.
[2024-01-26 17:52] LABS: HEMATOCRIT 33.2 % (37.0-47.0); HEMOGLOBIN 10.8 g/dl (12.0-16.0)
--- NOTE | 2024-01-26 18:02 | NUR ---
PT IS WATCHING TV WITH FAMILY AT THE BEDSIDE. CALL LIGHT IN REACH.
--- NOTE | 2024-01-26 19:20 | NUR ---
ASSESSMENT COMPLETED. PT IS IN PAIN 08/20. DOES HAVE TEMP OF 100.1 . PT AMBULATED TO BR. V/S STABLE
[2024-01-26] MEDS ORDERED: AMOXICILLIN & POT CLAVULANATE 875 MG/TAB PO SCH (21:00)
[2024-01-26] MEDS ORDERED: metroNIDAZOLE 500 MG/TAB PO SCH (21:00)
[2024-01-26 22:00] VITALS: BP 150/97
[2024-01-27] VITALS (10 sets, daily range): BP systolic 146–193; BP diastolic 91–122
--- NOTE | 2024-01-27 | NUR ---
PT RESTFUL. PT STATED PO PAIN MED DID NOT DO ANYTHING. DILAUDID WAS GIVEN PER PROVIDER ORDERS, PT IMMEDIATELY BECAME NAUSEOUS. ZOFRAN WAS GIVEN. TEMP REASSESS WAS 99.0. V/S STABLE. CALL LIGHT IN REACH
--- NOTE | 2024-01-27 00:20 | NUR ---
PT REPOSITIONED. PT HAS EYES OPEN, ATTEMPTING TO PULL AT LINES, PROP ADJUSTED. V/S STABLE.
--- NOTE | 2024-01-27 04:00 | NUR ---
PT IS RESTFUL, STILL COMPLAINS OF 9/10 PAIN. ASSISTED PT TO BR. NO OTHER COMPLAINTS. ABD SHOWS NO S/S OF INFECTION, DERMABOND CLEAN, DRY, INTACT. V/S STABLE. CALL LIGHT IN REACH
[2024-01-27 06:17] LABS: BASO% 0.3 % (0-3); EOS% 0.1 % (0-8); HEMATOCRIT 31.5 % (37.0-47.0); HEMOGLOBIN 10.5 g/dl (12.0-16.0); IMMATURE GRANULOCYTES 1.6 % (0.0-5.0); LYMPH% 10.5 % (15-41); MEAN CELL VOLUME 85.1 fL CALC (80.0-100.0); MEAN CORPUSCULAR HGB 28.4 pG CALC (26.0-32.0); MEAN CORPUSCULAR HGB CONC 33.3 g/dL CAL (32.0-36.0); MONO% 5.3 % (2-13); NEUT# 8.1 thou/uL (2.00-7.15); NEUT% 82.2 % (42-76); RED BLOOD COUNT 3.7 mill/uL (4.20-5.60); RED CELL DISTRI WIDTH 13.6 % (11.5-15.5)
[2024-01-27 06:32] LABS: ALBUMIN 2.5 g/dL (3.2-5.0); BILIRUBIN, TOTAL 0.4 mg/dL (0.02-1.3); CREATININE 0.5 mg/dL (0.5-1.0); POTASSIUM 3.9 mmol/l (3.5-5.1); TOTAL PROTEIN 5.5 g/dL (6.3-8.2)
--- NOTE | 2024-01-27 08:00 | NUR ---
REPORT RECEIVED FROM NIGHT NURSE. PT HAD SURGERY YESTERDAY FOR ACUTE CHOLECYSTITIS. PT IS DOING WELL THIS MORNING. ASSISTED UP TO CHAIR TO EAT BREAKFAST. LUNGS CLEAR; PT IS ON RA. HEART SOUNDS S1S2; NOT ON TELEMETRY. BS HYPOACTIVE; ABDOMEN SOFT, TENDER. INCISION SITES INTACT, NO REDNESS, SWEELING OR DRAINAGE. PULSES STRONG ALL EXTREMETIES. SKIN W/D. AFEBRILE. CALL LIGHT AND BELONGINGS WITHIN REACH. VSS.
--- NOTE | 2024-01-27 09:30 | NUR ---
DR. ROSALES AT BEDSIDE TO ASSESS PT.
[2024-01-27] MEDS ORDERED: PERCOCET 5/325M1 TAB PO (09:36)
--- NOTE | 2024-01-27 12:30 | NUR ---
discharge teaching completed. pt verbalized understanding of follow up instructions. emphasized importance of following up to get an OBGYN appt this week due to HTN and DM. pt aware of post-op instructions and limitations.
--- NOTE | 2024-01-27 12:44 | NUR ---
IV REMOVED. ALL BELONGINGS GATHERED AND SENT WITH PT. PT TAKEN TO ENTRANCE IN WHEELCHAIR WITH VOLUNTEER. PT IN GOOD CONDITION. REMINDED AGAIN TO MONITOR BP AND BLOOD SUGAR.
[2024-01-28] MEDS ORDERED: BACTRIM DS1 TAB PO (15:42)
== END 2024-01-27 12:48 | disposition home or self-care (01) | DRG 818 ==
LOC: ED 23:37 → ED-I 23:59 → ED 01-26 01:29 → ICU 01-26 01:30 → ED-I 01-26 01:30 → ICU 01-26 06:59
PROVIDERS: Family Medicine; ADMIT Surgery; ATTEND Surgery
PROC: 0FT44ZZ Resection of Gallbladder, Percutaneous Endoscopic Approach (ICD-10-PCS; principal; 2024-01-26)
DX: O99.612 Diseases of the digestive system complicating pregnancy, second trimester (principal); K80.00 Calculus of gallbladder with acute cholecystitis without obstruction; O24.312 Unspecified pre-existing diabetes mellitus in pregnancy, second trimester; O09.522 Supervision of elderly multigravida, second trimester; Z3A.17 17 weeks gestation of pregnancy
CPT/HCPCS: J0131; J0360; J1171; J1596; J1815; J2405; J2470; J2543; J2710

== ENCOUNTER 2024-01-27 15:39 | Emergency (ER) | payer SELFPAY ==
[~2024-01-27] VITALS: Ht 152.4 cm; Wt 81.6 kg
[2024-01-27] VITALS (11 sets, daily range): BP systolic 159–192; BP diastolic 94–109
[~2024-01-27 15:39] MED LIST changes: +PERCOCET 5/325M1 TAB PO
[2024-01-27] MEDS ORDERED: SODIUM CHLORIDE 0.9% 1,000 ML IV STA (17:01)
[2024-01-27] MEDS ORDERED: ONDANSETRON HCl 4 MG/2 ML SDV IV STA ×2 (17:01→19:12)
[2024-01-27] MEDS ORDERED: MORPHINE SULFATE 4 MG/ML VIAL IV STA ×2 (17:01→18:53)
[2024-01-27] MEDS ORDERED: ONDANSETRON HCl 4 MG/2 ML SDV IV ONE (17:35)
[2024-01-27 17:36] LABS: BASO% 0.2 % (0-3); EOS% 0.1 % (0-8); HEMATOCRIT 36.9 % (37.0-47.0); HEMOGLOBIN 11.9 g/dl (12.0-16.0); IMMATURE GRANULOCYTES 4.8 % (0.0-5.0); LYMPH% 9.1 % (15-41); MEAN CELL VOLUME 86.8 fL CALC (80.0-100.0); MEAN CORPUSCULAR HGB CONC 32.2 g/dL CAL (32.0-36.0); MONO% 5.6 % (2-13); NEUT# 12.7 thou/uL (2.00-7.15); NEUT% 80.2 % (42-76); RED BLOOD COUNT 4.25 mill/uL (4.20-5.60); RED CELL DISTRI WIDTH 13.9 % (11.5-15.5)
[2024-01-27] MEDS ORDERED: LABETALOL HCL 20 MG/ 4 ML CARTRG IV ONE ×2 (17:40→19:15)
[2024-01-27 17:47] LABS: CREATININE 0.5 mg/dL (0.5-1.0)
[2024-01-27 17:48] LABS: ALBUMIN 3.5 g/dL (3.2-5.0); BILIRUBIN, TOTAL 0.6 mg/dL (0.02-1.3); TOTAL PROTEIN 7.4 g/dL (6.3-8.2)
[2024-01-27] MEDS ORDERED: oxyCODONE 5MG/ ACETAMINOPHEN 325MG TAB PO ONE (19:30)
[2024-01-27 20:00] LABS: URINE BLOOD DIPSTICK Negative (NEGATIVE); URINE GLUCOSE - DIPSTICK Negative (NEGATIVE); URINE KETONE 80 mg/dL (NEGATIVE); URINE LEUK ESTERASE Negative (NEGATIVE); URINE NITRITE - DIPSTICK Negative (Negative); URINE PH 6.5 (4.5-8.0); URINE PROTEIN - DIPSTICK Negative (NEG-TRACE); URINE SPECIFIC GRAVITY 1.015; URINE UROBILINOGEN - DIPSTICK 0.2 E.U./dL (0.2)
[2024-01-27 20:01] LABS: URINE COLOR Yellow
[2024-01-28] MEDS ORDERED: BACTRIM DS1 TAB PO (15:42)
--- NOTE | 2024-01-29 11:41 | NUR ---
Discharge follow up call completed 01/29/24. Patient states she is feeling about the same as when she was discharged. Patient is taking prescribed mediction as directed. Patient has a follow up appointment on 02/03/24. No needs or concerns verbalized at this time.
== END 2024-01-27 20:28 | disposition home or self-care (01) | DRG 948 ==
LOC: ED 15:39
PROVIDERS: Nurse Practitioner
DX: G89.18 Other acute postprocedural pain (principal); R10.84 Generalized abdominal pain; O24.912 Unspecified diabetes mellitus in pregnancy, second trimester; Z90.49 Acquired absence of other specified parts of digestive tract; Z3A.24 24 weeks gestation of pregnancy
CPT/HCPCS: J2405

== ENCOUNTER 2024-01-31 19:57 | Emergency (ER) | payer SELFPAY ==
[~2024-01-31] VITALS: Ht 152.4 cm; Wt 84.0 kg
[~2024-01-31 19:57] MED LIST changes: +BACTRIM DS1 TAB PO
[2024-01-31] MEDS ORDERED: MIRALAX17 GM PO (21:14)
[2024-01-31] MEDS ORDERED: Peg 3350-POTASSIUM CHLORIDE-So 4,000 ML BTL PO ONE (21:15)
[2024-01-31 21:55] VITALS: BP 155/88
== END 2024-01-31 21:55 | disposition home or self-care (01) | DRG 639 ==
LOC: ED 19:57
DX: E11.9 Type 2 diabetes mellitus without complications (principal); K59.00 Constipation, unspecified

== ENCOUNTER 2024-02-17 04:04 | Emergency (ER) | payer SELFPAY ==
[~2024-02-17] VITALS: Ht 152.4 cm; Wt 80.0 kg
[~2024-02-17 04:04] MED LIST changes: +MIRALAX17 GM PO
[2024-02-17 04:27] VITALS: BP 182/97
[2024-02-17] MEDS ORDERED: PROMETHAZINE HCL 25 MG/ML AMP IV ONE (04:30)
[2024-02-17] MEDS ORDERED: ACETAMINOPHEN 500 MG TAB PO ONE (04:30)
[2024-02-17] MEDS ORDERED: SODIUM CHLORIDE 0.9% 1,000 ML IV STA (04:30)
[2024-02-17] MEDS ORDERED: KETOROLAC TROMETHAMINE 30 MG/ML SDV IV ONE (04:30)
[2024-02-17 05:25] VITALS: BP 155/92
[2024-02-17 05:28] LABS: BASO% 0.6 % (0-3); EOS% 1.6 % (0-8); LYMPH% 24.3 % (15-41); MEAN CELL VOLUME 90.2 fL CALC (80.0-100.0); MEAN CORPUSCULAR HGB 29.9 pG CALC (26.0-32.0); MEAN CORPUSCULAR HGB CONC 33.1 g/dL CAL (32.0-36.0); MONO% 9.1 % (2-13); NEUT# 5.51 thou/uL (2.00-7.15); NEUT% 62.4 % (42-76); RED BLOOD COUNT 3.28 mill/uL (4.20-5.60); RED CELL DISTRI WIDTH 19.6 % (11.5-15.5)
[2024-02-17 05:29] LABS: URINE BILIRUBIN - DIPSTICK Negative (NEGATIVE); URINE BLOOD DIPSTICK Negative (NEGATIVE); URINE GLUCOSE - DIPSTICK Negative (NEGATIVE); URINE KETONE Negative (NEGATIVE); URINE LEUK ESTERASE Negative (NEGATIVE); URINE NITRITE - DIPSTICK Negative (Negative); URINE PROTEIN - DIPSTICK >=300 mg/dL (NEG-TRACE); URINE UROBILINOGEN - DIPSTICK 0.2 E.U./dL (0.2)
[2024-02-17 05:30] VITALS: BP 149/85
[2024-02-17 05:30] LABS: HEMATOCRIT 29.6 % (37.0-47.0); HEMOGLOBIN 9.8 g/dl (12.0-16.0)
[2024-02-17 05:32] LABS: BILIRUBIN, TOTAL 0.4 mg/dL (0.02-1.3); CREATININE 0.5 mg/dL (0.5-1.0)
[2024-02-17 05:37] LABS: ALBUMIN 2.6 g/dL (3.2-5.0); TOTAL PROTEIN 5.6 g/dL (6.3-8.2)
[2024-02-17 05:43] LABS: URINE COLOR Yellow
[2024-02-17 05:46] LABS: URINE BACTERIA FEW hpf; URINE EPITHELIAL CELLS FEW EPI/hpf (0-FEW); URINE WBC 0-2 WBC/hpf (0-5)
[2024-02-17 06:00] VITALS: BP 132/77
[2024-02-17] MEDS ORDERED: PHENERGAN25 MG RE (06:13)
[2024-02-17 06:33] VITALS: BP 132/77
== END 2024-02-17 06:34 | disposition home or self-care (01) | DRG 392 ==
LOC: ED 04:04
PROVIDERS: Family Medicine
DX: K52.9 Noninfective gastroenteritis and colitis, unspecified (principal)
CPT/HCPCS: J2550

== ENCOUNTER 2024-03-17 18:27 | Emergency (ER) | payer SELFPAY ==
[~2024-03-17] VITALS: Ht 152.4 cm; Wt 81.6 kg
[~2024-03-17 18:27] MED LIST changes: +PHENERGAN25 MG RE
[2024-03-17 19:51] LABS: BASO% 0.7 % (0-3); EOS% 2.9 % (0-8); HEMATOCRIT 32.4 % (37.0-47.0); HEMOGLOBIN 10.4 g/dl (12.0-16.0); IMMATURE GRANULOCYTES 0.4 % (0.0-5.0); LYMPH% 26.1 % (15-41); MEAN CORPUSCULAR HGB 28.9 pG CALC (26.0-32.0); MEAN CORPUSCULAR HGB CONC 32.1 g/dL CAL (32.0-36.0); NEUT# 4.83 thou/uL (2.00-7.15); NEUT% 62.9 % (42-76); RED BLOOD COUNT 3.6 mill/uL (4.20-5.60); RED CELL DISTRI WIDTH 14.7 % (11.5-15.5)
[2024-03-17 20:11] VITALS: BP 138/76
== END 2024-03-17 20:15 | disposition home or self-care (01) | DRG 779 ==
LOC: ED 18:27
PROVIDERS: Family Medicine
DX: O03.6 Delayed or excessive hemorrhage following complete or unspecified spontaneous abortion (principal); E11.9 Type 2 diabetes mellitus without complications